=== PATIENT | female | born 1970 | race African-American/Black ===

== ENCOUNTER 2017-04-11 12:47 | Emergency (ER) | payer BC ==
[~2017-04-11] VITALS: Ht 170.2 cm; Wt 77.1 kg
--- NOTE | ~2017-04-11 | EKG ---
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 : 1970 Requested By: Billy Paredes Order Number: [id number] MD: Raghu Vargas Measurements Intervals [place] Rate: 86 P: 35 [place]: 162 QRS: 35 QRSD: 95 T: 24 QT: 410 QTc: 491 Interpretive Statements Sinus rhythm Probable left atrial enlargement Left ventricular hypertrophy Borderline prolonged QT interval Compared to ECG 02/22/2015 03:18:01 Nonspecific T wave abnormality is now present Electronically Signed On 04-13-2017 8:14:09 CDT by Raghu Vargas [email or web address] <ELECTRONICALLY SIGNED> By: Raghu Vargas MD, [facility] [id number] 140 05 Raghu Vargas MD, [facility] /EPI
--- NOTE | ~2017-04-11 | EKG ---
[address] [place] [address] ELECTROCARDIOGRAM REPORT Name: DIANEJAYME [facility] [id number] Admission: 04/11/17 Attend Phys: Discharge: 04/11/17 Date of : 70 Report #: [id number] THIS REPORT FOR: //name// 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
[~2017-04-11 12:47] MED LIST: ACETAMINOPHEN325 M1 PO; FOLIC ACID1 MG PO; FUROSEMIDE 40 M40 M1 PO; IBUPROFEN 600600 M1; INNOPRAN XL80 MG PO; IRON325 PO; LEVOTHYROXINE50 MCG PO; METHOTREXATE 22.5 MG PO; NORCO 5-325 TA1 EACH PO; OMEPRAZOLE40 MG PO; PAXIL 20 MG TAB20 MG PO; POTASSIUM20 PO; PREDNISONE 20 M20 MG PO; PRENATAL PO; PROPRANOLOL 20M20 MG PO; PROPYLTHIOURACIL PO; PROTONIX 20 MG20 M1 PO; TUCKS MEDICATE1 EAC1; VENTOLIN HFA 1818 GM INH; ZANTAC 150MG T150 MG PO; ZESTRIL5 MG PO; ZOLOFT50 MG PO; ZPAK PO; ZYRTEC10 MG PO
[2017-04-11 13:28] LABS: URINE BILIRUBIN NEGATIVE (Negative); URINE BLOOD NEGATIVE (Negative); URINE COLOR YELLOW; URINE GLUCOSE-RANDOM* NEGATIVE (Negative); URINE KETONES TRACE (Negative); URINE LEUKOCYTES-REFLEX NEGATIVE (Negative); URINE PROTEIN (DIPSTICK) TRACE (Negative); URINE SPECIFIC GRAVITY >= 1.030 (1.003-1.035)
[2017-04-11 13:37] LABS: HEMATOCRIT 36.2 % (37.0-47.0); MCH 30.4 pg (26.0-34.0); MCV 92.1 fL (80.0-100.0); PLATELET COUNT 176 thou/uL (150-400); RBC 3.93 mil/uL (4.20-5.00); RDW 15.3 % (10.5-14.5); WBC 4.4 thou/uL (4.0-11.0)
[2017-04-11 13:44] LABS: CALCIUM 8.7 mg/dL (8.5-10.1); CREATININE 0.9 mg/dL (0.6-1.0); POTASSIUM 3.9 mmol/L (3.5-5.1)
[2017-04-11 13:49] LABS: MANUAL DIFF YES
[2017-04-11 13:50] LABS: ALBUMIN 3.6 g/dL (3.4-5.0); TOTAL BILIRUBIN 0.4 mg/dL (<0.1-1.0); TOTAL PROTEIN 8.2 g/dL (6.4-8.2)
[2017-04-11 14:15] LABS: ABSOLUTE NEUTROPHILS 2.5 thou/uL (1.4-8.2); TOTAL CELL COUNT 100
[2017-04-11 14:16] LABS: LARGE PLATELETS FEW
[2017-04-11] MEDS ORDERED: NAPROSYN500 MG PO (14:50)
== END 2017-04-11 15:44 | disposition home or self-care (01) ==
LOC: ER 12:47
PROVIDERS: Emergency Medicine
DX: R07.89 Other chest pain (principal); F17.210 Nicotine dependence, cigarettes, uncomplicated; F10.99 Alcohol use, unspecified with unspecified alcohol-induced disorder; F12.10 Cannabis abuse, uncomplicated; Z88.0 Allergy status to penicillin

== ENCOUNTER 2018-02-22 02:37 | Emergency (ER) | payer BC ==
[~2018-02-22] VITALS: Ht 170.2 cm; Wt 77.1 kg
[~2018-02-22 02:37] MED LIST changes: +BENADRYL25 MG PO; +NAPROSYN500 MG PO; +PEPCID20 MG PO; +VENLAFAXINE HC100 MG
[2018-02-22] MEDS ORDERED: ZOLOFT100 MG PO (04:21)
[2018-02-22] MEDS ORDERED: NORCO 5-325 TA1 EACH PO ×2 (04:22→05:12)
== END 2018-02-22 05:24 | disposition home or self-care (01) ==
LOC: ER 02:37
DX: M24.411 Recurrent dislocation, right shoulder (principal); M32.9 Systemic lupus erythematosus, unspecified; F17.210 Nicotine dependence, cigarettes, uncomplicated; Z90.89 Acquired absence of other organs; Z88.0 Allergy status to penicillin

== ENCOUNTER 2019-09-19 04:33 | Emergency (ER) | payer BC ==
[~2019-09-19] VITALS: Ht 170.2 cm; Wt 77.1 kg
[~2019-09-19 04:33] MED LIST changes: +ZOLOFT100 MG PO
[2019-09-19] MEDS ORDERED: ULTRAM 50MG TAB50 MG PO (05:12)
[2019-09-19 05:42] VITALS: BP 145/106
== END 2019-09-19 05:44 | disposition home or self-care (01) ==
LOC: ER 04:33
DX: M25.561 Pain in right knee (principal); M25.461 Effusion, right knee; M06.9 Rheumatoid arthritis, unspecified; F17.210 Nicotine dependence, cigarettes, uncomplicated; Z90.49 Acquired absence of other specified parts of digestive tract; Z88.0 Allergy status to penicillin

== ENCOUNTER 2020-03-10 08:13 | Emergency (ER) | payer BC ==
[~2020-03-10] VITALS: Ht 170.2 cm; Wt 79.8 kg
[~2020-03-10 08:13] MED LIST changes: +ULTRAM 50MG TAB50 MG PO
[2020-03-10 08:50] LABS: ABSOLUTE NEUTROPHILS 2.3 thou/uL (1.4-8.2); BASOPHILS 1.4 % (0.0-2.0); EOSINOPHILS 0.8 % (0.0-3.0); HEMATOCRIT 33.3 % (37.0-47.0); HEMOGLOBIN 10.8 gm/dL (12.0-15.0); LYMPHOCYTES 26.9 % (24.0-44.0); MCH 31.4 pg (26.0-34.0); MCHC 32.4 g/dL (28.0-37.0); MCV 96.8 fL (80.0-100.0); MONOCYTES 8.4 % (1.0-8.0); PLATELET COUNT 180 thou/uL (150-400); POLYS 62.5 % (36.0-66.0); RBC 3.43 mil/uL (4.20-5.00); RDW 15.5 % (10.5-14.5); WBC 3.6 thou/uL (4.0-11.0)
[2020-03-10 08:53] LABS: ANION GAP 10 mmol/L (7-16); BUN 16 mg/dL (7-18); CALCIUM 8.1 mg/dL (8.5-10.1); CHLORIDE 105 mmol/L (98-107); CO2 24 mmol/L (21-32); GLUCOSE 108 mg/dL (74-106); POTASSIUM 3.6 mmol/L (3.5-5.1); SODIUM 139 mmol/L (136-145)
[2020-03-10 09:02] LABS: TROPONIN-I <0.06 ng/mL (<0.06)
[2020-03-10] MEDS ORDERED: ULTRAM 50MG TAB50 MG PO (09:21)
[2020-03-10] MEDS ORDERED: PREDNISONE 20 M20 MG PO (09:21)
[2020-03-10 09:36] VITALS: BP 145/105
--- NOTE | 2020-03-10 11:02 | EKG ---
[facility] [address] ELECTROCARDIOGRAM REPORT Name: JAYME CONTRERAS Room #: DEP [facility]#: [id number] Admission: 03/10/20 Attend Phys: Discharge: 03/10/20 Date of : 70 Report #: [id number] THIS REPORT FOR: cc: Miesha Daniel MD, Stephanie B. MD Lundgren, Craig H. 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 : 1970 Requested By: Billy Paredes Order Number: [id number] MD: Raghu Vargas Measurements Intervals [place] Rate: 99 P: 42 [place]: 161 QRS: 31 QRSD: 80 T: 27 QT: 374 QTc: 480 Interpretive Statements Sinus rhythm No significant abnormality Compared to ECG 04/11/2017 14:06:36 Left ventricular hypertrophy no longer present Electronically Signed On 03-10-2020 11:02:16 CDT by Raghu Vargas [email or web address] <ELECTRONICALLY SIGNED> By: Raghu Vargas MD, [facility] 03/10/20 1102 7 7 Raghu Vargas MD, [facility] /EPI
== END 2020-03-10 09:37 | disposition home or self-care (01) ==
LOC: ER 08:13
PROVIDERS: Emergency Medicine
DX: M32.9 Systemic lupus erythematosus, unspecified (principal); R07.9 Chest pain, unspecified; F17.210 Nicotine dependence, cigarettes, uncomplicated; Z79.899 Other long term (current) drug therapy; Z88.0 Allergy status to penicillin; Z90.89 Acquired absence of other organs

== ENCOUNTER 2021-04-11 13:30 | Emergency (ER) | payer OTHER ==
[~2021-04-11] VITALS: Ht 170.2 cm; Wt 72.6 kg
[2021-04-11 15:00] LABS: ABSOLUTE NEUTROPHILS 9.1 thou/uL (1.4-8.2); EOSINOPHILS 0.2 % (0.0-3.0); HEMATOCRIT 33.4 % (37.0-47.0); HEMOGLOBIN 11.1 gm/dL (12.0-15.0); MCH 30.8 pg (26.0-34.0); MCHC 33.2 g/dL (28.0-37.0); MCV 92.7 fL (80.0-100.0); MONOCYTES 10.1 % (1.0-8.0); PLATELET COUNT 164 thou/uL (150-400); POLYS 83.7 % (36.0-66.0); RDW 14.5 % (10.5-14.5); WBC 10.9 thou/uL (4.0-11.0)
[2021-04-11 15:10] LABS: ALBUMIN 3.8 g/dL (3.4-5.0); CALCIUM 8.6 mg/dL (8.5-10.1); CREATININE 0.9 mg/dL (0.6-1.0); POTASSIUM 3.7 mmol/L (3.5-5.1); TOTAL BILIRUBIN 0.4 mg/dL (0.2-1.0); TOTAL PROTEIN 8.6 g/dL (6.4-8.2)
[2021-04-11] MEDS ORDERED: NORCO5 PO (16:34)
[2021-04-11] MEDS ORDERED: AZITHROMYCIN 2250 MG PO (16:34)
[2021-04-11 16:44] VITALS: BP 147/97
[2021-04-11] MEDS ORDERED: DIFLUCAN150 MG PO (16:51)
--- NOTE | 2021-04-15 07:32 | EKG ---
[address] [place] [address] ELECTROCARDIOGRAM REPORT Name: DIANEJAYME OCHOA 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 : 1970 Requested By: Ty Yañez Order Number: [id number] MD: Se Blackwell Measurements Intervals [place] Rate: 104 P: 149 DC: 148 QRS: -24 QRSD: 88 T: QT: 363 QTc: 478 Interpretive Statements Sinus tachycardia Left atrial enlargement Inferior infarct, old Lateral leads are also involved Baseline wander in lead(s) II,III,aVR,aVF,V1,V2,V3,V4,V5,V6 Compared to ECG 03/10/2020 08:18:28 Atrial abnormality now present Myocardial infarct finding now present Sinus rhythm no longer present Electronically Signed On 04-15-2021 7:32:42 CDT by Se Blackwell [email or web address] <ELECTRONICALLY SIGNED> By: Se Blackwell MD, [facility] 04/15/21 0732 1333 1333 Se Blackwell MD, [facility] /EPI
== END 2021-04-11 16:44 | disposition home or self-care (01) ==
LOC: ER 13:30
PROVIDERS: Emergency Medicine
DX: J18.9 Pneumonia, unspecified organism (principal); Z20.822 Contact with and (suspected) exposure to COVID-19; E89.0 Postprocedural hypothyroidism; F17.210 Nicotine dependence, cigarettes, uncomplicated; Z79.1 Long term (current) use of non-steroidal anti-inflammatories (NSAID); Z79.891 Long term (current) use of opiate analgesic; Z79.899 Other long term (current) drug therapy; Z88.0 Allergy status to penicillin

== ENCOUNTER 2021-06-25 20:08 | Emergency (ER) | payer OTHER ==
[~2021-06-25] VITALS: Ht 167.6 cm; Wt 72.6 kg
[~2021-06-25 20:08] MED LIST changes: +AZITHROMYCIN 2250 MG PO; +DIFLUCAN150 MG PO; +NORCO5 PO
[2021-06-25 20:57] LABS: URINE BILIRUBIN NEGATIVE (Negative); URINE BLOOD NEGATIVE (Negative); URINE CLARITY CLEAR; URINE COLOR YELLOW; URINE GLUCOSE-RANDOM* NEGATIVE (Negative); URINE KETONES TRACE (Negative); URINE LEUKOCYTES-REFLEX NEGATIVE (Negative); URINE NITRITE-REFLEX NEGATIVE (Negative); URINE PROTEIN (DIPSTICK) TRACE (Negative); URINE SPECIFIC GRAVITY >= 1.030 (1.005-1.035)
[2021-06-25 21:03] LABS: HEMATOCRIT 29.3 % (37.0-47.0); HEMOGLOBIN 9.3 gm/dL (12.0-15.0); MCH 29.3 pg (26.0-34.0); MCHC 31.6 g/dL (28.0-37.0); MCV 92.8 fL (80.0-100.0); RBC 3.16 mil/uL (4.20-5.00); WBC 4.5 thou/uL (4.0-11.0)
[2021-06-25 21:19] LABS: CALCIUM 8.6 mg/dL (8.5-10.1); CREATININE 1.3 mg/dL (0.6-1.0); POTASSIUM 3.7 mmol/L (3.5-5.1)
[2021-06-25 21:20] LABS: ALBUMIN 3.4 g/dL (3.4-5.0); TOTAL BILIRUBIN 0.4 mg/dL (0.2-1.0)
[2021-06-25 23:39] VITALS: BP 116/82
== END 2021-06-25 23:40 | disposition home or self-care (01) ==
LOC: ER 20:08
PROVIDERS: Nurse Practitioner Family
DX: R51.9 Headache, unspecified (principal); M32.9 Systemic lupus erythematosus, unspecified; I10 Essential (primary) hypertension; E89.0 Postprocedural hypothyroidism; F17.210 Nicotine dependence, cigarettes, uncomplicated; F12.90 Cannabis use, unspecified, uncomplicated; Z90.89 Acquired absence of other organs; Z79.899 Other long term (current) drug therapy; Z79.1 Long term (current) use of non-steroidal anti-inflammatories (NSAID); Z88.0 Allergy status to penicillin

== ENCOUNTER 2021-09-09 17:31 | Emergency (ER) | payer OTHER ==
[~2021-09-09] VITALS: Ht 170.2 cm; Wt 68.0 kg
[2021-09-09 17:40] VITALS: BP 176/127
== END 2021-09-09 19:31 | disposition home or self-care (01) ==
LOC: ER 17:31
DX: B34.9 Viral infection, unspecified (principal); Z20.822 Contact with and (suspected) exposure to COVID-19; I10 Essential (primary) hypertension; E89.0 Postprocedural hypothyroidism; F17.210 Nicotine dependence, cigarettes, uncomplicated; Z79.899 Other long term (current) drug therapy; Z79.891 Long term (current) use of opiate analgesic; Z79.1 Long term (current) use of non-steroidal anti-inflammatories (NSAID); Z88.0 Allergy status to penicillin

== ENCOUNTER 2021-09-22 14:43 | Emergency (ER) | payer OTHER ==
[~2021-09-22] VITALS: Ht 170.2 cm; Wt 68.0 kg
[2021-09-22 15:56] LABS: HEMATOCRIT 30.4 % (37.0-47.0); HEMOGLOBIN 9.7 gm/dL (12.0-15.0); MCH 26.2 pg (26.0-34.0); MCHC 31.9 g/dL (28.0-37.0); MCV 82.3 fL (80.0-100.0); PLATELET COUNT 193 thou/uL (150-400); RBC 3.69 mil/uL (4.20-5.00); RDW 21.4 % (10.5-14.5); WBC 3.6 thou/uL (4.0-11.0)
[2021-09-22 16:11] LABS: ALBUMIN 3.2 g/dL (3.4-5.0); CALCIUM 8.7 mg/dL (8.5-10.1); CREATININE 2.2 mg/dL (0.6-1.0); DIRECT BILIRUBIN 0.8 mg/dL (<0.1-0.2); TOTAL BILIRUBIN 1.2 mg/dL (0.2-1.0); TOTAL PROTEIN 8.2 g/dL (6.4-8.2)
[2021-09-22 16:35] LABS: POTASSIUM 2.5 mmol/L (3.5-5.1)
[2021-09-22 16:43] LABS: ABSOLUTE NEUTROPHILS 2.7 thou/uL (1.4-8.2); ANISOCYTOSIS 1+
[2021-09-22 17:41] VITALS: BP 158/105
== END 2021-09-22 18:46 | disposition home or self-care (01) ==
LOC: ER 14:43
PROVIDERS: Student in an Organized Health Care Education/Training Program
DX: R06.02 Shortness of breath (principal); E87.6 Hypokalemia; E03.9 Hypothyroidism, unspecified; I10 Essential (primary) hypertension; F17.210 Nicotine dependence, cigarettes, uncomplicated; Z79.891 Long term (current) use of opiate analgesic; Z79.899 Other long term (current) drug therapy; Z88.0 Allergy status to penicillin